=== PATIENT | female | born 1980 | race Caucasian/White ===

== ENCOUNTER 2024-01-12 06:06 | Day surgery (SDC) | payer BC ==
[2024-01-08 14:14] VITALS: BMI 33.5
[2024-01-08 14:35] LABS: Hematocrit 38.8 % (34.9-44.5); Hemoglobin 12.8 g/dL (12.0-15.5); Mean Corpuscular Hemoglobin 28.4 pg (27.0-33.0); Mean Corpuscular Volume 86.2 fL (81.6-98.3); Platelet Count 301 10x3/uL (150-450); RBC Distribution Width 14.3 % (11.5-14.5)
[2024-01-08 14:48] LABS: BHCG - Serum Negative (NEGATIVE); Pregs Control Background? CLEAR/WHITE (CLR/WHITE); Pregs Control Bar Appear? YES (CONTROL BAR)
[2024-01-12] MEDS ORDERED: SUGAMMADEX SODIUM 200 MG/2 ML VIAL ONE ×2 (06:40→08:59)
[2024-01-12] MEDS ORDERED: fentaNYL 50 mcg/mL 1 mL Vial ONE ×4 (06:40→10:03)
[2024-01-12] MEDS ORDERED: PROPOFOL 20 ML ONE (06:40)
[2024-01-12] MEDS ORDERED: Ondansetron PF 4 MG/2 ML Vial ONE (06:40)
[2024-01-12] MEDS ORDERED: Rocuronium Bromide 10 MG/ML (10ML VIAL) ONE (06:40)
[2024-01-12] MEDS ORDERED: Bupivacaine HCl 0.5%/Epinephrine 1:200,000/PF 30 ml Vial ONE (06:44)
[2024-01-12] MEDS ORDERED: Midazolam HCl 2 mg/2 ml Vial ONE (07:00)
[2024-01-12] MEDS ORDERED: CEFAZOLIN 2 GM VIAL ONE (07:26)
[2024-01-12] MEDS ORDERED: metroNIDAZOLE 500 MG (100 mL) BAG ONE (07:26)
[2024-01-12] MEDS ORDERED: Dexamethasone 4 mg/ml Vial ONE (07:46)
[2024-01-12] MEDS ORDERED: diphenhydrAMINE 50 MG/ML VIAL ONE (07:46)
[2024-01-12] MEDS ORDERED: Meperidine HCl/PF 25 MG (1 mL) VIAL ONE (08:57)
[2024-01-12] MEDS ORDERED: Ketorolac Tromethamine 30 MG (1 mL) VIAL ONE (08:58)
[2024-01-12] MEDS ORDERED: HYDROcodone/Acetaminophen 5/325 mg Tablet ONE (10:39)
== END 2024-01-12 11:16 | disposition home or self-care (01) ==
LOC: CSHSDC 06:06
PROVIDERS: ATTEND Obstetrics & Gynecology
PROC: 0UT74ZZ Resection of Bilateral Fallopian Tubes, Percutaneous Endoscopic Approach (ICD-10-PCS; principal; 2024-01-12)
PROC: 0UT94ZZ Resection of Uterus, Percutaneous Endoscopic Approach (ICD-10-PCS; principal; 2024-01-12)
DX: D25.1 Intramural leiomyoma of uterus (principal); D25.0 Submucous leiomyoma of uterus
CPT/HCPCS: 84703; 85027; 86850; 86900; 86901; 88307; C9250; J1100; J1200; J1885; J2175; J2250; J2405; J2704; J3010